=== PATIENT | male | born 1985 | race African-American/Black ===

== ENCOUNTER 2018-02-09 16:56 | Emergency (ER) | payer MEDICARE, MEDICAID ==
[~2018-02-09] VITALS: Ht 180.3 cm; Wt 136.4 kg
[2018-02-09] MEDS ORDERED: KETOROLAC TROMETHAMINE 30 MG/ML VIAL IM ONE (18:15)
[2018-02-09 19:34] VITALS: BP 110/61
== END 2018-02-09 19:36 | disposition home or self-care (01) ==
LOC: EMS 16:57
DX: M21.42 Flat foot [pes planus] (acquired), left foot (principal); M21.41 Flat foot [pes planus] (acquired), right foot; M72.2 Plantar fascial fibromatosis; F17.210 Nicotine dependence, cigarettes, uncomplicated; Z59.0 Homelessness; Z98.890 Other specified postprocedural states; F31.9 Bipolar disorder, unspecified; F20.9 Schizophrenia, unspecified
CPT/HCPCS: 73630; 96372; 99284; 99406; J1885

== ENCOUNTER 2019-02-13 20:48 | Inpatient (IN) | payer MEDICARE, MEDICAID ==
[~2019-02-13] VITALS: Ht 182.9 cm; Wt 132.4 kg
[~2019-02-13 20:48] MED LIST: FLUO-191 PO; NALT50TA PO; OLAN10TA22 PO
[2019-02-13 22:07] LABS: HEMOGLOBIN 14.6 g/dL (13.5-17.5); MEAN CORPUSCULAR VOLUME 94 fL (80-100); RED BLOOD CELL COUNT(AUTO) 4.69 MIL/uL (4.50-5.90)
[2019-02-13 22:08] LABS: LYMPHOCYTES % (AUTO) 31.2 % (22.0-44.0); MEAN CORPUSCULAR HEMOGLOBIN 31.1 pg (26.0-34.0); MEAN CORPUSCULAR HGB CONC 33.2 G/dL (31.0-37.0); MONOCYTES % (AUTO) 9.4 % (2.0-9.0); NEUTROPHILS % (AUTO) 50.3 % (40.0-70.0); PLATELET COUNT (AUTO) 258 K/uL (150-450); RED CELL DISTRIBUTION WIDTH 13.1 % (11.5-14.5)
[2019-02-13 22:09] LABS: BASOPHILS % (AUTO) 2.3 % (0.0-2.0); EOSINOPHILS % (AUTO) 6.8 % (1.0-6.0); LYMPHOCYTES # (AUTO) 1.9 K/uL (1.0-4.8); MONOCYTES # (AUTO) 0.6 K/uL (0.1-1.0); NEUTROPHILS # (AUTO) 3.1 K/uL (1.8-7.7)
[2019-02-13 22:25] LABS: AMPHET/METH SCREEN,URINE NEGATIVE (NEGATIVE); BARBITURATE SCREEN, URINE NEGATIVE (NEGATIVE); BENZODIAZEPINES SCREEN,URINE NEGATIVE (NEGATIVE); CANNABINOID SCREEN,URINE NEGATIVE (NEGATIVE); COCAINE SCREEN,URINE NEGATIVE (NEGATIVE); METHADONE SCREEN, URINE NEGATIVE (NEGATIVE); OPIATE SCREEN,URINE NEGATIVE (NEGATIVE)
[2019-02-13 22:30] LABS: PHENCYCLIDINE SCREEN,URINE NEGATIVE (NEGATIVE)
[2019-02-13 22:46] LABS: ANION GAP 11 mmol/L (8-16); CALCIUM, TOTAL 9.9 mg/dL (8.8-10.5); CARBON DIOXIDE 29 mmol/L (22-29); CHLORIDE 101 mmol/L (98-107); CREATININE 1.26 mg/dL (0.60-1.30); GLOMERULAR FILTR. RATE CALC > 60 mL/min (>60); GLUCOSE,RANDOM 123 mg/dL (70-110); POTASSIUM 4.1 mmol/L (3.5-5.1); SODIUM SERUM 141 mmol/L (136-145)
[2019-02-13 22:53] LABS: ALANINE AMINOTRANSFERASE 26 U/L (12-78); ALBUMIN 4.1 g/dL (3.4-5.0); ALKALINE PHOSPHATASE 68 U/L (46-116); ASPARTATE AMINOTRANSFERASE 20 U/L (15-37); BILIRUBIN,TOTAL 0.3 mg/dL (0.1-1.0); TOTAL PROTEIN, SERUM 7.3 g/dL (6.4-8.2); UREA NITROGEN, BLOOD 10 mg/dL (7-18)
[2019-02-13] MEDS ORDERED: ZOLPIDEM TARTRATE 10 MG TABLET PO PRN (23:45)
[2019-02-13] MEDS ORDERED: HALOPERIDOL 5 MG TABLET PO PRN (23:45)
[2019-02-13] MEDS ORDERED: LORazepam 2 MG TABLET PO PRN (23:45)
[2019-02-14 01:34] VITALS: BP 126/80
[2019-02-14 07:45] LABS: HEMOGLOBIN A1C 4.7 % (4.5-6.2)
[2019-02-14 08:01] LABS: CHOL/HDL RATIO 3.1 (4.2-7.3); THYROID STIMULATING HORMONE 0.49 uIU/mL (0.36-3.74)
[2019-02-14] MEDS ORDERED: CloNIDine HCL 0.1 MG TABLET PO PRN (08:30)
[2019-02-14] MEDS ORDERED: ONDANSETRON HCL 4 MG TABLET PO PRN (08:30)
[2019-02-14] MEDS ORDERED: MAG HYDROX/AL HYDROX/SIMETH ES 30 ML SUSPENSION UDCUP PO PRN (08:30)
[2019-02-14] MEDS ORDERED: PETROLATUM,WHITE 28 GM JELLY TP PRN (08:30)
[2019-02-14] MEDS ORDERED: IBUPROFEN 600 MG TABLET PO PRN (08:30)
[2019-02-14] MEDS ORDERED: MAGNESIUM HYDROXIDE SUSPENSION 30 ML UDCUP PO PRN (08:30)
[2019-02-14] MEDS ORDERED: ACETAMINOPHEN 325 MG TABLET PO PRN (08:30)
[2019-02-14] MEDS ORDERED: BACITRACIN 28.4 GM OINTMENT TP PRN (08:30)
[2019-02-14] MEDS ORDERED: LOPERAMIDE HCL 2 MG CAPSULE PO PRN (08:30)
[2019-02-14] MEDS ORDERED: ALBUTEROL SULFATE HFA 90 MCG/PUFF 8 GM INHALER IH PRN (08:30)
[2019-02-14] MEDS ORDERED: OMEPRAZOLE 20 MG CAPSULE PO PRN (08:30)
[2019-02-14] MEDS ORDERED: BENZOCAINE/MENTHOL LOZENGE MM PRN (08:30)
[2019-02-14] MEDS ORDERED: DOCUSATE SODIUM 100 MG CAPSULE PO PRN (08:30)
[2019-02-14 09:24] VITALS: BP 118/70
[2019-02-14] MEDS: NALTREXONE HCL 50 MG TABLET PO SCH (11:42)
[2019-02-14] MEDS: FLUoxetine HCL 20 MG CAPSULE PO SCH (11:42)
[2019-02-14 16:04] VITALS: BP 117/68
[2019-02-14] MEDS: OLANZapine 10 MG TABLET PO SCH (20:30)
[2019-02-15 06:05] VITALS: BP 120/81
[2019-02-15] MEDS: NALTREXONE HCL 50 MG TABLET PO SCH (08:38)
[2019-02-15] MEDS: FLUoxetine HCL 20 MG CAPSULE PO SCH (08:38)
[2019-02-15 08:41] VITALS: BP 126/69
[2019-02-15 16:12] VITALS: BP 128/83
[2019-02-15] MEDS: OLANZapine 10 MG TABLET PO SCH (20:47)
[2019-02-16 05:12] VITALS: BP 124/78
[2019-02-16 08:06] VITALS: BP 107/81
[2019-02-16] MEDS: FLUoxetine HCL 20 MG CAPSULE PO SCH (08:29)
[2019-02-16] MEDS: NALTREXONE HCL 50 MG TABLET PO SCH (08:29)
[2019-02-16 16:07] VITALS: BP 153/92
[2019-02-16] MEDS: OLANZapine 10 MG TABLET PO SCH (20:08)
[2019-02-16] MEDS: QUEtiapine FUMARATE 100 MG TABLET PO SCH (20:08)
[2019-02-17 07:10] VITALS: BP 120/81
[2019-02-17 08:38] VITALS: BP 103/64
[2019-02-17] MEDS: FLUoxetine HCL 20 MG CAPSULE PO SCH (09:22)
[2019-02-17] MEDS: NALTREXONE HCL 50 MG TABLET PO SCH (09:22)
[2019-02-17] MEDS ORDERED: QUET100T33 PO (10:28)
[2019-02-17] MEDS ORDERED: PALIPERIDONE PALMITATE 234 MG/1.5 ML SYRINGE IM ONE (16:00)
[2019-02-17 16:30] VITALS: BP 108/61
[2019-02-17] MEDS: OLANZapine 10 MG TABLET PO SCH (20:06)
[2019-02-17] MEDS: QUEtiapine FUMARATE 100 MG TABLET PO SCH (20:06)
[2019-02-18 05:22] VITALS: BP 121/70
[2019-02-18 08:44] VITALS: BP 119/73
[2019-02-18] MEDS: NALTREXONE HCL 50 MG TABLET PO SCH (08:47)
[2019-02-18] MEDS ORDERED: FLUoxetine HCL 20 MG CAPSULE PO SCH (09:00)
[2019-02-18] MEDS ORDERED: FLUO-191 PO (09:13)
== END 2019-02-18 13:25 | disposition home or self-care (01) | DRG 885 ==
LOC: EMS 20:49 → B2X 02-14 00:06
PROVIDERS: ADMIT Psychiatry & Neurology Child & Adolescent Psychiatry; ATTEND Psychiatry & Neurology Child & Adolescent Psychiatry
DX: F20.0 Paranoid schizophrenia (principal); R45.851 Suicidal ideations; E66.9 Obesity, unspecified; I10 Essential (primary) hypertension; K21.9 Gastro-esophageal reflux disease without esophagitis; K59.00 Constipation, unspecified; Z87.891 Personal history of nicotine dependence; Z79.899 Other long term (current) drug therapy
CPT/HCPCS: 83036; 84439; 84443; G0480

== ENCOUNTER 2021-01-17 15:35 | Emergency (ER) | payer MEDICARE, OTHER ==
[~2021-01-17] VITALS: Ht 180.3 cm; Wt 136.4 kg
[~2021-01-17 15:35] MED LIST changes: +QUET100T34 PO
[2021-01-17] MEDS ORDERED: MORPHINE SULFATE 10 MG/ML VIAL IVP ONE (17:45)
[2021-01-17] MEDS ORDERED: KETOROLAC TROMETHAMINE 30 MG/ML VIAL IVP ONE (17:45)
[2021-01-17] MEDS ORDERED: CYCLOBENZAPRINE HCL 10 MG TABLET PO ONE (17:45)
[2021-01-17] MEDS ORDERED: LIDOCAINE 5% TRANSDERMAL PATCH TD ONE (17:45)
[2021-01-17 18:45] VITALS: BP 117/68
== END 2021-01-17 19:07 | disposition home or self-care (01) ==
LOC: EMS 15:49
DX: M54.5 Low back pain (principal); F32.9 Major depressive disorder, single episode, unspecified; F20.9 Schizophrenia, unspecified; F17.210 Nicotine dependence, cigarettes, uncomplicated; Z59.0 Homelessness
CPT/HCPCS: 96374; 96375; 99284; J1885; J2270

== ENCOUNTER 2022-01-11 12:02 | Inpatient (IN) | payer MEDICARE, MEDICAID ==
[~2022-01-11] VITALS: Ht 182.9 cm; Wt 131.0 kg
[~2022-01-11 12:02] MED LIST changes: +FLUO-177 PO; -FLUO-191 PO
[2022-01-11] MEDS ORDERED: DOCU-385 PO (13:57)
[2022-01-11] MEDS ORDERED: PANT-31 PO (13:57)
[2022-01-11] MEDS ORDERED: RISP3TAB35 PO (13:58)
[2022-01-11] MEDS ORDERED: HALOPERIDOL 5 MG TABLET PO PRN (18:00)
[2022-01-11] MEDS ORDERED: ZOLPIDEM TARTRATE 10 MG TABLET PO PRN (18:00)
[2022-01-11] MEDS ORDERED: LORazepam 2 MG TABLET PO PRN (18:00)
[2022-01-11 18:05] VITALS: BP 125/71
[2022-01-11] MEDS ORDERED: PNEUMOCOCCAL VACCINE POLYVALENT 0.5 ML VIAL [PPSV23] IM. ONE (19:15)
[2022-01-12 06:41] VITALS: BP 117/72
[2022-01-12 08:17] VITALS: BP 101/63
[2022-01-12] MEDS: RisperiDONE 3 MG TABLET PO SCH ×2 (08:50→17:00)
[2022-01-12] MEDS: LITHIUM CARBONATE 300 MG CAPSULE PO SCH ×2 (08:52→17:00)
[2022-01-12] MEDS: DIVALPROEX SODIUM 500 MG DR TABLET PO SCH ×2 (08:53→17:00)
[2022-01-12 20:26] VITALS: BP 115/67
[2022-01-12] MEDS ORDERED: CloNIDine HCL 0.1 MG TABLET PO PRN (22:45)
[2022-01-12] MEDS ORDERED: ALBUTEROL SULFATE HFA 90 MCG/PUFF 8 GM INHALER IH PRN (22:45)
[2022-01-12] MEDS ORDERED: LOPERAMIDE HCL 2 MG CAPSULE PO PRN (22:45)
[2022-01-12] MEDS ORDERED: BENZOCAINE/MENTHOL LOZENGE PO PRN (22:45)
[2022-01-12] MEDS ORDERED: MAGNESIUM HYDROXIDE SUSPENSION 30 ML UDCUP PO PRN (22:45)
[2022-01-12] MEDS ORDERED: DOCUSATE SODIUM 100 MG CAPSULE PO PRN (22:45)
[2022-01-12] MEDS ORDERED: IBUPROFEN 600 MG TABLET PO PRN (22:45)
[2022-01-12] MEDS ORDERED: MAG HYDROX/AL HYDROX/SIMETH ES 30 ML SUSPENSION UDCUP PO PRN (22:45)
[2022-01-12] MEDS ORDERED: ONDANSETRON HCL 4 MG TABLET PO PRN (22:45)
[2022-01-12] MEDS ORDERED: BACITRACIN 28 GM OINTMENT TP PRN (22:45)
[2022-01-12] MEDS ORDERED: OMEPRAZOLE 20 MG CAPSULE PO PRN (22:45)
[2022-01-12] MEDS ORDERED: ACETAMINOPHEN 325 MG TABLET PO PRN (22:45)
[2022-01-12] MEDS ORDERED: PETROLATUM,WHITE 28 GM JELLY TP PRN (22:45)
[2022-01-13] MEDS: DIVALPROEX SODIUM 500 MG DR TABLET PO SCH ×2 (09:00→17:00)
[2022-01-13] MEDS: RisperiDONE 3 MG TABLET PO SCH ×2 (09:00→17:00)
[2022-01-13] MEDS: LITHIUM CARBONATE 300 MG CAPSULE PO SCH ×2 (09:00→17:00)
[2022-01-14 08:38] VITALS: BP 122/79
[2022-01-14] MEDS: RisperiDONE 3 MG TABLET PO SCH ×2 (09:00→16:11)
[2022-01-14] MEDS: DIVALPROEX SODIUM 500 MG DR TABLET PO SCH ×2 (09:00→16:11)
[2022-01-14] MEDS: LITHIUM CARBONATE 300 MG CAPSULE PO SCH ×2 (09:00→16:11)
[2022-01-14 20:25] VITALS: BP 114/73
[2022-01-15 08:14] VITALS: BP 133/76
[2022-01-15] MEDS: DIVALPROEX SODIUM 500 MG DR TABLET PO SCH ×2 (09:00→17:00)
[2022-01-15] MEDS: RisperiDONE 3 MG TABLET PO SCH ×2 (09:00→17:00)
[2022-01-15] MEDS: LITHIUM CARBONATE 300 MG CAPSULE PO SCH ×2 (09:00→17:00)
[2022-01-15 20:30] VITALS: BP 138/78
[2022-01-16] MEDS: LITHIUM CARBONATE 300 MG CAPSULE PO SCH (09:00)
[2022-01-16] MEDS: DIVALPROEX SODIUM 500 MG DR TABLET PO SCH (09:00)
[2022-01-16] MEDS: RisperiDONE 3 MG TABLET PO SCH (09:00)
[2022-01-16] MEDS ORDERED: LITH300C3 PO (09:03)
[2022-01-16] MEDS ORDERED: DIVA-112 PO (09:03)
[2022-01-16] MEDS ORDERED: RISP3TAB63 PO (09:03)
== END 2022-01-16 10:43 | disposition home or self-care (01) | DRG 885 ==
LOC: B3A 17:47
PROVIDERS: ADMIT Psychiatry & Neurology Psychiatry; ATTEND Psychiatry & Neurology Psychiatry
DX: F25.9 Schizoaffective disorder, unspecified (principal); F17.200 Nicotine dependence, unspecified, uncomplicated; E55.9 Vitamin D deficiency, unspecified; G47.00 Insomnia, unspecified; K59.00 Constipation, unspecified; F41.9 Anxiety disorder, unspecified; K21.9 Gastro-esophageal reflux disease without esophagitis; F10.10 Alcohol abuse, uncomplicated; Z79.899 Other long term (current) drug therapy
CPT/HCPCS: 87081

== ENCOUNTER 2022-01-21 12:01 | Inpatient (IN) | payer MEDICARE, OTHER ==
[~2022-01-21] VITALS: Ht 182.9 cm; Wt 95.5 kg
[~2022-01-21 12:01] MED LIST changes: +DIVA-112 PO; -FLUO-177 PO; +LITH300C3 PO; -NALT50TA PO; -OLAN10TA22 PO; -QUET100T34 PO; +RISP3TAB63 PO
[2022-01-21] MEDS ORDERED: HALOPERIDOL 5 MG TABLET PO PRN (13:30)
[2022-01-21] MEDS ORDERED: LORazepam 2 MG TABLET PO PRN (13:30)
[2022-01-21] MEDS ORDERED: ZOLPIDEM TARTRATE 10 MG TABLET PO PRN (13:30)
[2022-01-21 14:13] LABS: COVID AG,FIA SOURCE NASAL SWAB
[2022-01-21] MEDS ORDERED: ACETAMINOPHEN 325 MG TABLET PO PRN (15:15)
[2022-01-21] MEDS ORDERED: MAGNESIUM HYDROXIDE SUSPENSION 30 ML UDCUP PO PRN (15:15)
[2022-01-21] MEDS ORDERED: ONDANSETRON HCL 4 MG/2 ML VIAL IVP PRN (15:15)
[2022-01-21] MEDS: HEPARIN SODIUM,PORCINE 5,000 UNITS/ML VIAL SQ SCH (15:20)
[2022-01-21 17:18] VITALS: BP 149/99
[2022-01-22 04:32] VITALS: BP 110/58
[2022-01-22 07:24] VITALS: BP 114/62
[2022-01-22] MEDS: HEPARIN SODIUM,PORCINE 5,000 UNITS/ML VIAL SQ SCH ×4 (08:00→23:42)
[2022-01-22] MEDS: FAMOTIDINE 20 MG TABLET PO SCH (08:14)
[2022-01-22] MEDS: SODIUM CHLORIDE 0.9% 1,000 ML IV SCH ×2 (09:00→19:00)
[2022-01-22] MEDS ORDERED: REMDESIVIR 200 MG in SODIUM CHLORIDE 0.9% 250 ML IV ONE (12:00)
[2022-01-22 23:16] VITALS: BP 100/61
[2022-01-23] MEDS: SODIUM CHLORIDE 0.9% 1,000 ML IV SCH ×2 (05:00→15:00)
[2022-01-23 05:10] VITALS: BP 120/77
[2022-01-23 07:50] VITALS: BP 123/75
[2022-01-23] MEDS: HEPARIN SODIUM,PORCINE 5,000 UNITS/ML VIAL SQ SCH ×3 (08:00→23:56)
[2022-01-23] MEDS: FAMOTIDINE 20 MG TABLET PO SCH (08:11)
[2022-01-23] MEDS ORDERED: REMDESIVIR 100 MG in SODIUM CHLORIDE 0.9% 250 ML IV SCH (12:00)
[2022-01-23 16:47] VITALS: BP 118/70
[2022-01-23 20:01] VITALS: BP 123/75
[2022-01-24] MEDS: SODIUM CHLORIDE 0.9% 1,000 ML IV SCH (01:00)
[2022-01-24] MEDS: HEPARIN SODIUM,PORCINE 5,000 UNITS/ML VIAL SQ SCH ×2 (08:00→16:00)
[2022-01-24 08:24] VITALS: BP 127/78
[2022-01-24] MEDS: FAMOTIDINE 20 MG TABLET PO SCH (09:00)
[2022-01-25 05:50] VITALS: BP 129/70
[2022-01-25] MEDS: HEPARIN SODIUM,PORCINE 5,000 UNITS/ML VIAL SQ SCH ×3 (08:00→15:22)
[2022-01-25] MEDS: FAMOTIDINE 20 MG TABLET PO SCH (08:26)
== END 2022-01-25 15:53 | disposition home or self-care (01) | DRG 871 ==
LOC: EMS 12:01 → 6N 16:44
PROVIDERS: ADMIT Psychiatry & Neurology Psychiatry; ATTEND Psychiatry & Neurology Psychiatry
PROC: XW033E5 Introduction of Remdesivir Anti-infective into Peripheral Vein, Percutaneous Approach, New Technology Group 5 (ICD-10-PCS; principal; 2022-01-22)
DX: A41.9 Sepsis, unspecified organism (principal); U07.1 COVID-19; F25.0 Schizoaffective disorder, bipolar type; F17.210 Nicotine dependence, cigarettes, uncomplicated; Z91.14 Patient's other noncompliance with medication regimen; Z71.6 Tobacco abuse counseling
CPT/HCPCS: 99285; J1644; J7030; J7050; Q9967

== ENCOUNTER 2022-05-28 11:40 | Emergency (ER) | payer MEDICARE, OTHER ==
[~2022-05-28 11:40] MED LIST changes: -DIVA-112 PO
== END 2022-05-28 13:00 | disposition left against medical advice (07) ==
LOC: EMS 11:47
DX: Z53.21 Procedure and treatment not carried out due to patient leaving prior to being seen by health care provider (principal)